=== PATIENT | female | born 1995 | race African-American/Black ===

== ENCOUNTER → 2016-11-14 16:34 | Emergency (ER) | payer OTHER ==
[~2016-11-14 16:34] MED LIST: Haloperidol INJ IV/IM* 5 MG/ML AMP ONE; LORazepam INJ* 2 MG/ML 1 ML VIAL ONE; diPHENhydraMINE PO* 50 MG ONE
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
== END | disposition home or self-care (01) ==
LOC: EDBD → ED 16:34
DX: F32.9 Major depressive disorder, single episode, unspecified (principal); F43.9 Reaction to severe stress, unspecified
CPT/HCPCS: 96374; 99284; A9270-GY; J1630; J2060

== ENCOUNTER 2017-03-09 12:03 | Emergency (ER) | payer OTHER | END 2017-03-09 12:55 | disposition left against medical advice (07) | LOC: UCEAST 12:03 | DX: Z53.21 Procedure and treatment not carried out due to patient leaving prior to being seen by health care provider (principal) ==

== ENCOUNTER 2017-03-09 13:03 | Emergency (ER) | payer OTHER | END 2017-03-09 15:17 | disposition left against medical advice (07) | LOC: UCEAST 13:03 | DX: Z53.21 Procedure and treatment not carried out due to patient leaving prior to being seen by health care provider (principal) ==

== ENCOUNTER 2018-09-11 10:25 | Emergency (ER) | payer OTHER ==
[2018-09-11 10:44] VITALS: BP 116/76
[2018-09-11] MEDS ORDERED: Lidocaine 1% MPF ** 5 ML VIAL IM ONE (11:00)
[2018-09-11] MEDS ORDERED: Azithromycin TAB* 250 MG PO ONE (11:00)
[2018-09-11] MEDS ORDERED: cefTRIAXone VIAL(*) 250 MG VIAL IM ONE (11:00)
[2018-09-11] MEDS ORDERED: Ondansetron ODT TAB* 4 MG SL ONE (11:02)
--- NOTE | 2018-09-11 11:06 | UC ---
Complaint Female HPI - HPI Summary HPI Summary: 22-year-old female who presents for right ear pain and STD check. Patient states that she had right ear pain beginning 2 days ago and her outer canal, was concerned for the past better. Patient rates the pain 5/10 and worse when she is laying on the right ear, no fevers or chills, describes it as throbbing. No hearing loss or tinnitus. Patient would also like to be tested for chlamydia as her partner tested positive for chlamydia. Patient's partner was treated for Chlamydia but not gonorrhea. Patient also requesting HIV and syphilis testing. Patient denies vaginal discharge or pelvic complaints. - History Of Current Complaint Chief Complaint: UCEar Stated Complaint: RT EAR CONCERN/PERSONAL Time Seen by Provider: 09/11/18 10:32 Hx Last Menstrual Period: august 10 Pain Intensity: 10 - Allergies/Home Medications Allergies/Adverse Reactions: Allergies Allergy/AdvReac Type Severity Reaction Status Date / Time No Known Allergies Allergy Verified 09/11/18 10:43 Home Medications: Home Medications NK [No Home Medications Reported] 09/11/18 [History Confirmed 09/11/18] Valacyclovir HCl [Valtrex] 500 mg PO SEE INSTRUCTIONS 09/11/18 [History Confirmed 09/11/18] PMH/Surg Hx/FS Hx/Imm Hx Previously Healthy: Yes - Surgical History Surgical History: None - Family History Known Family History: Positive: Non-Contributory - Social History Alcohol Use: Occasionally Substance Use Type: Marijuana Smoking Status (MU): Never Smoked Tobacco Review of Systems All Other Systems Reviewed And Are Negative: Yes ENT: Positive: Ear Ache Genitourinary: Negative: Vaginal/Penile Burning, Vaginal/Penile Itching, Vaginal /Penile Discharge Physical Exam - Summary Physical Exam Summary: General: Well appearing, no distress HEENT: PERRL. right outer ear canal with mild erythema, right TM sanders and pearly , left TM and ear canal are unremarkable Cardiovascular: Skin is well perfused Pulmonary: No respiratory distress, no tachypnea Abdomen: Non-distended Skin: Warm, pink, dry MSK: no edema Psych: Normal affect Neuro: A&Ox3 Vital Signs: Initial Vital Signs Temp 36.6 C 09/11/18 10:35 Pulse 66 09/11/18 10:35 Resp 18 09/11/18 10:35 BP 116/76 08/01/19 10:35 Pulse Ox 99 09/11/18 10:35 Complaint Female Dx - Course Course Of Treatment: 30-year-old female with right ear pain and here for STD check Physical exam that will for mild erythema of the outer ear canal c/w small boil. No surrounding tenderness, or evidence of infection, nothing to drain. Patient advised at this likely resolve on its own. Regarding STD check, we'll treat for gonorrhea and chlamydia, we'll send an HIV and RPR. - Differential Dx/Diagnosis Provider Diagnosis: Ear pain, right, STD exposure Discharge - Sign-Out/Discharge Documenting (check all that apply): Patient Departure All imaging exams completed and their final reports reviewed: No Studies - Discharge Plan Condition: Stable Disposition: HOME Patient Education Materials: Sexually Transmitted Diseases (ED), Safe Sex (ED) Referrals: [facility] [Outside] Additional Instructions: You were seen for STD testing. We sent a gonorrhea and chlamydia test, this will take several days result. We prophylactically treated you for exposure to gonorrhea and chlamydia. We also sent an HIV blood test and a syphillis test. You will be called if any of these results are abnormal. If you test positive for an STD please inform your partners as they need to be treated as well. Please practice safe sex and use protection including condoms. - Billing Disposition and Condition Condition: STABLE Disposition: Home
[2018-09-12 13:11] LABS: Chlamydia trachomatis NAA Negative (Negative); Neisseria gonorrhoeae (GC) NAA Negative (Negative)
== END 2018-09-11 11:48 | disposition home or self-care (01) ==
LOC: UCEAST 10:25
DX: H92.01 Otalgia, right ear (principal); Z20.2 Contact with and (suspected) exposure to infections with a predominantly sexual mode of transmission
CPT/HCPCS: 36415; 81025; 86780; 87389; 87491; 87591; 96372; 99212; A9270-GY; G0463; J0696